=== PATIENT | female | born 1960 | race Caucasian/White ===

== ENCOUNTER 2016-04-24 10:13 | Inpatient (IN) | payer MEDICAID ==
[~2016-04-24] VITALS: Ht 157.5 cm; Wt 59.9 kg
[2016-04-24] MEDS ORDERED: ZIPRASIDONE 20 MG INJ IM ONE (11:00)
[2016-04-24] MEDS ORDERED: ALU/MAG/SIM 30 ML UDC PO PRN (15:55)
[2016-04-24] MEDS ORDERED: HALOPERIDOL 5 MG TAB PO PRN (15:55)
[2016-04-24] MEDS ORDERED: LORAZEPAM 2 MG/ML VIAL IM PRN (15:55)
[2016-04-24] MEDS ORDERED: LORAZEPAM 2 MG TAB PO PRN (15:55)
[2016-04-24] MEDS ORDERED: ACETAMINOPHEN 325 MG TAB PO PRN (15:55)
[2016-04-24] MEDS ORDERED: MAG HYDROX 30 ML UDC PO PRN (15:55)
[2016-04-24] MEDS ORDERED: DIPHENHYDRAMINE 50 MG/ML VIAL IM PRN (15:55)
[2016-04-24] MEDS ORDERED: DIPHENHYDRAMINE 50 MG CAP PO PRN (15:55)
[2016-04-24] MEDS ORDERED: HALOPERIDOL 5 MG/ML VIAL IM PRN (15:55)
[2016-04-24] MEDS: NICOTINE 21 MG/24 HR TRANSDERM SCH (15:59)
[2016-04-24] MEDS: LEVOTHYROXINE 0.088 MG TAB PO SCH (17:11)
[2016-04-24 19:13] VITALS: BP_SYST 99; RESP 16; TEMP 98.9
[2016-04-24] MEDS: OLANZAPINE 10 MG TAB PO SCH (21:32)
[2016-04-25] MEDS: TRAZODONE 50 MG TAB PO PRN ×2 (01:29→21:33)
[2016-04-25] MEDS: LEVOTHYROXINE 0.088 MG TAB PO SCH (06:56)
[2016-04-25] MEDS: MULTIVITS/MINERALS (THERAGRAN M) TAB PO SCH (08:12)
[2016-04-25] MEDS: NICOTINE 21 MG/24 HR TRANSDERM SCH (09:00)
[2016-04-25 09:03] VITALS: BP_SYST 107; RESP 18; TEMP 97.4
[2016-04-25] MEDS: KCL 20 MEQ/15 ML UDC PO SCH ×2 (11:30→21:33)
[2016-04-25 16:39] VITALS: Ht 157.5 cm; Wt 59.9 kg
[2016-04-25 19:03] VITALS: BP_SYST 112; RESP 18; TEMP 97.6
[2016-04-25] MEDS: OLANZAPINE 10 MG TAB PO SCH (21:33)
[2016-04-26] MEDS: LEVOTHYROXINE 0.088 MG TAB PO SCH (07:17)
[2016-04-26] MEDS: MULTIVITS/MINERALS (THERAGRAN M) TAB PO SCH (09:08)
[2016-04-26] MEDS: NICOTINE 21 MG/24 HR TRANSDERM SCH (09:08)
[2016-04-26 09:44] VITALS: BP_SYST 123; RESP 17; TEMP 98.6
[2016-04-26] MEDS: CEPACOL LOZENGE PO PRN ×2 (12:51→17:25)
[2016-04-26] MEDS: Cetirizine/PSE 12-Hour Tab PO SCH (12:51)
[2016-04-26 19:14] VITALS: BP_SYST 126; RESP 18; TEMP 97.4
[2016-04-26] MEDS ORDERED: risperiDONE 3 MG TAB PO SCH (21:00)
[2016-04-26] MEDS: TRAZODONE 50 MG TAB PO PRN (21:00)
[2016-04-27] MEDS: LEVOTHYROXINE 0.088 MG TAB PO SCH (07:07)
[2016-04-27] MEDS: CEPACOL LOZENGE PO PRN ×2 (07:13→15:58)
[2016-04-27] MEDS: Cetirizine/PSE 12-Hour Tab PO SCH (08:15)
[2016-04-27] MEDS: MULTIVITS/MINERALS (THERAGRAN M) TAB PO SCH (08:15)
[2016-04-27] MEDS: NICOTINE 21 MG/24 HR TRANSDERM SCH (08:16)
[2016-04-27 08:21] VITALS: BP_SYST 123; RESP 18; TEMP 98.4
[2016-04-27 19:00] VITALS: BP_SYST 127; RESP 18; TEMP 97.7
[2016-04-27] MEDS ORDERED: risperiDONE 2 MG TAB PO SCH (21:00)
[2016-04-27] MEDS: BENZTROPINE MES 1 MG TAB PO SCH (21:24)
[2016-04-27] MEDS: TRAZODONE 50 MG TAB PO PRN (21:34)
[2016-04-28] MEDS: LEVOTHYROXINE 0.088 MG TAB PO SCH (06:55)
[2016-04-28] MEDS: CEPACOL LOZENGE PO PRN (07:12)
[2016-04-28 07:40] VITALS: BP_SYST 133; RESP 20; TEMP 97.4
[2016-04-28] MEDS: NICOTINE 21 MG/24 HR TRANSDERM SCH (08:04)
[2016-04-28] MEDS: MULTIVITS/MINERALS (THERAGRAN M) TAB PO SCH (08:06)
[2016-04-28] MEDS: Cetirizine/PSE 12-Hour Tab PO SCH (08:06)
[2016-04-28] MEDS: TRIMETH/SULFAMETH 160/800 TAB PO SCH ×2 (12:30→20:54)
[2016-04-28 19:00] VITALS: BP_SYST 124; RESP 16; TEMP 98.1
[2016-04-28] MEDS: BENZTROPINE MES 1 MG TAB PO SCH (20:54)
[2016-04-28] MEDS: TRAZODONE 50 MG TAB PO PRN (20:54)
[2016-04-28] MEDS: risperiDONE 3 MG TAB PO SCH (20:54)
[2016-04-29] MEDS: LEVOTHYROXINE 0.088 MG TAB PO SCH (07:02)
[2016-04-29 07:17] VITALS: BP_SYST 103; RESP 16; TEMP 97.3
[2016-04-29] MEDS: TRIMETH/SULFAMETH 160/800 TAB PO SCH ×2 (08:25→21:23)
[2016-04-29] MEDS: MULTIVITS/MINERALS (THERAGRAN M) TAB PO SCH (08:25)
[2016-04-29] MEDS: NICOTINE 21 MG/24 HR TRANSDERM SCH (08:25)
[2016-04-29] MEDS: Cetirizine/PSE 12-Hour Tab PO SCH (08:25)
[2016-04-29] MEDS ORDERED: INVEGA SUSTENNA 234 MG/1.5 ML IM ONE (11:15)
[2016-04-29 19:05] VITALS: BP_SYST 126; RESP 16; TEMP 97.5
[2016-04-29] MEDS ORDERED: BENZTROPINE 0.5 MG TAB PO SCH (21:00)
[2016-04-29] MEDS ORDERED: BENZTROPINE MES 1 MG TAB PO SCH (21:00)
[2016-04-29] MEDS: risperiDONE 3 MG TAB PO SCH (21:24)
[2016-04-29] MEDS: TRAZODONE 50 MG TAB PO PRN (21:24)
[2016-04-30] MEDS: LEVOTHYROXINE 0.088 MG TAB PO SCH (07:24)
[2016-04-30 08:02] VITALS: BP_SYST 105; RESP 16; TEMP 97.7
[2016-04-30] MEDS: NICOTINE 21 MG/24 HR TRANSDERM SCH (09:00)
[2016-04-30] MEDS: MULTIVITS/MINERALS (THERAGRAN M) TAB PO SCH (09:19)
[2016-04-30] MEDS: TRIMETH/SULFAMETH 160/800 TAB PO SCH (09:19)
[2016-04-30] MEDS: Cetirizine/PSE 12-Hour Tab PO SCH (09:19)
[2016-04-30] MEDS ORDERED: INVEGA SUSTENNA 234 MG/1.5 ML IM ONE (10:00)
[2016-04-30 10:08] VITALS: BP_SYST 105; RESP 16; TEMP 97.7
[2016-04-30 10:24] VITALS: BP_SYST 105; RESP 16; TEMP 97.7
[2016-04-30 11:11] VITALS: BP_SYST 105; RESP 16; TEMP 97.7
[2016-04-30 11:12] VITALS: BP_SYST 105; RESP 16; TEMP 97.7
[2016-04-30 12:14] VITALS: BP_SYST 105; RESP 16; TEMP 97.7
== END 2016-04-30 12:30 | disposition home or self-care (01) | DRG 885 ==
LOC: ER 10:13 → EMR 14:16 → PSY 14:45
PROVIDERS: ADMIT Psychiatry & Neurology Psychiatry; ATTEND Psychiatry & Neurology Psychiatry
DX: F29 Unspecified psychosis not due to a substance or known physiological condition (principal); E11.9 Type 2 diabetes mellitus without complications; I10 Essential (primary) hypertension; N39.0 Urinary tract infection, site not specified; E03.9 Hypothyroidism, unspecified; G40.909 Epilepsy, unspecified, not intractable, without status epilepticus; E87.6 Hypokalemia; F20.9 Schizophrenia, unspecified; Z91.14 Patient's other noncompliance with medication regimen; G89.29 Other chronic pain
CPT/HCPCS: 36415; 80048; 80053; 80307; 80320; 80329; 81001; 84439; 84443; 85025; 85610; 87088; 96372